=== PATIENT | female | born 1970 | race Caucasian/White ===

== ENCOUNTER 2020-02-01 14:04 | Emergency (ER) | payer OTHER ==
[~2020-02-01] VITALS: Ht 160 cm; Wt 85.0 kg
[2020-02-01 14:09] VITALS: Ht 160 cm; Wt 85.0 kg
[2020-02-01] MEDS ORDERED: LISINOPRIL20 MG PO (14:10)
[2020-02-01] MEDS ORDERED: PRINIVIL10 MG PO (14:11)
[2020-02-01] MEDS ORDERED: ZYLOPRIM100 MG PO (14:11)
[2020-02-01] MEDS ORDERED: ESTRACE2 MG PO (14:11)
[2020-02-01 14:59] LABS: BILIRUBIN NEGATIVE (NEGATIVE); GLUCOSE NEGATIVE (NEGATIVE); KETONE NEGATIVE (NEGATIVE); NITRITE NEGATIVE (NEGATIVE); UROBILINOGEN NORMAL (NORMAL)
[2020-02-01 15:54] LABS: BASOPHILS 0.7 % (0-2); EOSINOPHILS 2.4 % (0-7); HEMATOCRIT 39.7 % (36.0-48.0); HEMOGLOBIN 13.4 g/dL (12-16); IMMATURE GRANULOCYTES 0.1 % (0-5); LYMPHOCYTES 36.2 % (15-50); MCH 29.8 pg (26.0-34.0); MCHC 33.8 g/dL (31.0-37.0); MCV 88.2 fL (80.0-100.0); MEAN PLATELET VOLUME 9.1 fL (7.4-10.4); MONOCYTES 9.8 % (2-11); NEUTROPHILS 50.8 % (40-80); PLATELET COUNT 321 10x3/uL (130-400); RDW 12.7 % (11.5-14.5)
[2020-02-01 16:13] LABS: CALC OSMOLALITY 269 mosm/kg (275-300); CALCIUM 8.5 mg/dL (8.5-10.1); CHLORIDE - SERUM 101 mmol/L (98-107); CREATININE - SERUM 0.8 mg/dL (0.6-1.3); GLUCOSE 93 mg/dL (74-106); POTASSIUM - SERUM 3.7 mmol/L (3.5-5.1); SODIUM 136 mmol/L (136-145); UREA NITROGEN 6 mg/dL (7-18); eGFR NON AFRICAN AMERICAN 80 mL/min (90-120)
[2020-02-01 16:16] LABS: ALBUMIN 3.7 g/dL (3.4-5.0); ALKALINE PHOSPHATASE 38 U/L (30-120); ALT (SGPT) 31 U/L (10-68); AMYLASE - SERUM 50 U/L (25-115); BILIRUBIN - TOTAL 0.57 mg/dL (0.2-1.3); LIPASE 92 U/L (73-393); PROTEIN - SERUM 7.6 g/dL (6.4-8.2); TROPONIN-I < 0.017 ng/mL (0.000-0.060)
[2020-02-01] MEDS ORDERED: HYDROCODON-ACE1 EAC7 PO (19:09)
[2020-02-01 20:25] VITALS: BP 126/84
== END 2020-02-01 20:25 | disposition home or self-care (01) ==
LOC: D.ER 14:04
PROVIDERS: Emergency Medicine
DX: R10.12 Left upper quadrant pain (principal); I10 Essential (primary) hypertension

== ENCOUNTER 2020-08-31 10:33 | Inpatient (IN) | payer OTHER ==
[~2020-08-31] VITALS: Ht 160 cm; Wt 74.8 kg
[~2020-08-31 10:33] MED LIST: ESTRACE2 MG PO; HYDROCODON-ACE1 EAC7 PO; LISINOPRIL20 MG PO; PRINIVIL10 MG PO; ZYLOPRIM100 MG PO
--- NOTE | 2020-08-31 11:00 | NUR ---
RECEIVED PATIENT FROM HOME, PATIENT STATES SHE HAS BEEN HAVING ABD PAIN FOR ABOUT 8 MONTHS THAT JUST KEEPS GETTING WORSE. SHE STATES THAT SHE CANT EAT WITHOUT GETTING SICK, HAS BEEN HAVING BLOODY STOOL OVER THE LAST DAY AND HAS NOTICED MUCUS IN STOOL SINCE SATURDAY AND GOT CONCERNED. PATIENT IS AWAKE ALERT AND ORIENTED. PLAN OF CARE REVIEWED AND ASSESSEMENT HAS BEEN COMPLETED. PATIENT DENIES NEEDS, BUT IS IN PAIN. IV STARTED TO LEFT AC, NURSE TO START IV FLUIDS AND IV MEDS. CALL LIGHT IN REACH.
[2020-08-31] MEDS ORDERED: CARAFATE1 G PO (11:26)
[2020-08-31] MEDS ORDERED: OMEPRAZOLE40 MG PO (11:28)
[2020-08-31 11:32] VITALS: BP 135/76
[2020-08-31 11:51] LABS: BASOPHILS 0.4 % (0-2); EOSINOPHILS 2.2 % (0-7); HEMATOCRIT 38.1 % (36.0-48.0); HEMOGLOBIN 13.4 g/dL (12-16); IMMATURE GRANULOCYTES 0.4 % (0-5); LYMPHOCYTE ABS# 2.59 10x3/uL (1.18-3.74); LYMPHOCYTES 31.3 % (15-50); MCH 30.2 pg (26.0-34.0); MCHC 35.2 g/dL (31.0-37.0); MCV 85.8 fL (80.0-100.0); MEAN PLATELET VOLUME 9.7 fL (7.4-10.4); MONOCYTES 8.9 % (2-11); NEUTROPHILS 56.8 % (40-80); RBC 4.44 10x6/uL (4.00-5.40); RDW 12.4 % (11.5-14.5); WBC 8.3 10x3/uL (4.8-10.8)
[2020-08-31 11:53] LABS: PLATELET COUNT 227 10x3/uL (130-400)
[2020-08-31 12:08] LABS: ALBUMIN 3.9 g/dL (3.4-5.0); ALKALINE PHOSPHATASE 47 U/L (30-120); ALT (SGPT) 46 U/L (10-68); AMYLASE - SERUM 38 U/L (25-115); BILIRUBIN - TOTAL 0.63 mg/dL (0.2-1.3); CALC OSMOLALITY 271 mosm/kg (275-300); CALCIUM 9.1 mg/dL (8.5-10.1); CHLORIDE - SERUM 100 mmol/L (98-107); CREATININE - SERUM 0.6 mg/dL (0.6-1.3); GLUCOSE 101 mg/dL (74-106); LIPASE 105 U/L (73-393); MAGNESIUM - SERUM 1.7 mg/dL (1.8-2.4); PHOSPHOROUS 3.7 mg/dL (2.5-4.9); POTASSIUM - SERUM 3.3 mmol/L (3.5-5.1); PROTEIN - SERUM 7.3 g/dL (6.4-8.2); SODIUM 137 mmol/L (136-145); UREA NITROGEN 8 mg/dL (7-18); eGFR NON AFRICAN AMERICAN > 90 mL/min (90-120)
[2020-08-31 12:43] VITALS: BP 134/72
[2020-08-31 12:51] LABS: INR 1.02 (0.85-1.17); PROTIME 12.4 SECONDS (11.6-15.0)
--- NOTE | 2020-08-31 13:09 | NUR ---
NURSE GIVES PATIENT ZOFRAN FOR NAUSEA AT THIS TIME
[2020-08-31 13:25] LABS: NITRITE NEGATIVE (NEGATIVE)
[2020-08-31 13:26] LABS: BACTERIA FEW HPF (NONE SEEN); BILIRUBIN NEGATIVE (NEGATIVE); KETONE LARGE mg/dL (NEGATIVE); SQUAMOUS EPITHELIAL 0-5 HPF (0-4); UROBILINOGEN NORMAL mg/dL (< 2); WHITE CELLS - URINE RARE HPF (0-4)
[2020-08-31 15:31] LABS: UDS - AMPHET NEGATIVE QUAL (NEGATIVE); UDS - BARB NEGATIVE QUAL (NEGATIVE); UDS - BENZO NEGATIVE QUAL (NEGATIVE); UDS - COCAINE NEGATIVE QUAL (NEGATIVE); UDS - OPIATE POSITIVE QUAL (NEGATIVE); UDS - PCP NEGATIVE QUAL (NEGATIVE); UDS - THC POSITIVE QUAL (NEGATIVE)
[2020-08-31 15:36] LABS: BILIRUBIN NEGATIVE (NEGATIVE); KETONE MODERATE mg/dL (NEGATIVE); NITRITE NEGATIVE (NEGATIVE); UROBILINOGEN NORMAL mg/dL (< 2)
[2020-08-31 15:37] LABS: HCG URINE NEGATIVE (NEGATIVE)
--- NOTE | 2020-08-31 16:30 | NUR ---
PATIENT WILL BE HAVING A GASTRIC EMPTYING IN AM. NURSE ORDERED TO PLACE PATIENT NPO AFTER MIDNIGHT AND ---NO PAIN MEDS-- . NURSE PLACES ORDER. WILL RELAY MESSAGE
[2020-08-31 17:11] VITALS: BP 115/68
[2020-08-31 20:00] VITALS: BP 102/63
--- NOTE | 2020-08-31 22:54 | NUR ---
pt was asleep in bed, but easy to wake. no complaints of pain nor distress at this time. encourage to call if anything is needed
[2020-09-01 04:00] VITALS: BP 102/69
[2020-09-01 05:35] LABS: BASOPHILS 0.1 % (0-2); EOSINOPHILS 2.4 % (0-7); HEMATOCRIT 34.6 % (36.0-48.0); IMMATURE GRANULOCYTES 0.3 % (0-5); LYMPHOCYTE ABS# 1.49 10x3/uL (1.18-3.74); LYMPHOCYTES 20.2 % (15-50); MCH 29.8 pg (26.0-34.0); MCHC 34.7 g/dL (31.0-37.0); MCV 85.9 fL (80.0-100.0); MEAN PLATELET VOLUME 9.3 fL (7.4-10.4); MONOCYTES 13.3 % (2-11); NEUTROPHILS 63.7 % (40-80); RBC 4.03 10x6/uL (4.00-5.40); RDW 12.3 % (11.5-14.5); WBC 7.4 10x3/uL (4.8-10.8)
[2020-09-01 05:56] LABS: PLATELET COUNT 315 10x3/uL (130-400)
[2020-09-01 06:17] LABS: ALBUMIN 3.1 g/dL (3.4-5.0); ALKALINE PHOSPHATASE 51 U/L (30-120); BILIRUBIN - TOTAL 0.64 mg/dL (0.2-1.3); CALC OSMOLALITY 273 mosm/kg (275-300); CALCIUM 8.4 mg/dL (8.5-10.1); CARBON DIOXIDE 26.1 mmol/L (21.0-32.0); CHLORIDE - SERUM 103 mmol/L (98-107); CREATININE - SERUM 0.6 mg/dL (0.6-1.3); GLUCOSE 98 mg/dL (74-106); POTASSIUM - SERUM 3.2 mmol/L (3.5-5.1); PROTEIN - SERUM 6.4 g/dL (6.4-8.2); SODIUM 138 mmol/L (136-145); UREA NITROGEN 6 mg/dL (7-18); eGFR NON AFRICAN AMERICAN > 90 mL/min (90-120)
[2020-09-01 06:22] LABS: ALT (SGPT) 65 U/L (10-68)
[2020-09-01 08:37] VITALS: BP 138/88
--- NOTE | 2020-09-01 09:57 | NUR ---
PT LAYING IN BED, MEDS GIVEN, PT PLACED ON ISOLATION PRECAUTIONS FOR POSITIVE C-DIFF
[2020-09-01 14:08] VITALS: Ht 160 cm; Wt 74.8 kg
--- NOTE | 2020-09-01 15:15 | NUR ---
XIN CALLED BECAUSE PT STATES PAIN 04/02 WITH NO IV PAIN MEDS AND IS STILL NPO FOR MRI, ORDERS RECEIVED
[2020-09-01 18:27] VITALS: BP 111/73
[2020-09-01 20:00] VITALS: BP 109/60
[2020-09-02] VITALS: BP 109/60
--- NOTE | 2020-09-02 00:07 | NUR ---
PT WAS RESTING IN BED WITH VISTIOR AT BEDSIDE. PT COMPLAINED OF ABDOMEN PAIN. PT WAS GIVEN PAIN AND NAUSEA MEDICATION WHICH WAS EFFECTIVE. NO OTHER COMPLAINTS AT THAT TIME. BED IN LOW POSITION WITH CALL LIGHT IN REACH
[2020-09-02 04:00] VITALS: BP 100/56
[2020-09-02 06:28] LABS: BASOPHILS 0.5 % (0-2); EOSINOPHILS 2.8 % (0-7); HEMATOCRIT 34.4 % (36.0-48.0); HEMOGLOBIN 11.8 g/dL (12-16); IMMATURE GRANULOCYTES 0.2 % (0-5); LYMPHOCYTE ABS# 1.38 10x3/uL (1.18-3.74); LYMPHOCYTES 22.7 % (15-50); MCH 29.2 pg (26.0-34.0); MCHC 34.3 g/dL (31.0-37.0); MCV 85.1 fL (80.0-100.0); MEAN PLATELET VOLUME 8.9 fL (7.4-10.4); MONOCYTES 17.8 % (2-11); PLATELET COUNT 264 10x3/uL (130-400); RBC 4.04 10x6/uL (4.00-5.40); RDW 12.3 % (11.5-14.5); WBC 6.1 10x3/uL (4.8-10.8)
--- NOTE | 2020-09-02 07:20 | NUR ---
REC'D IN ROOM AWAKE AND ALERT. RESP EVEN AND UNLABORED WITH NO DISTRESS NOTED. CAN EXPRESS NEEDS AND WANTS. NO C/O NOTED OR VOICED AT THIS TIME. ASSESSMENT COMPLETED. C/L IN REACH AT BEDSIDE.
[2020-09-02 07:23] LABS: ALBUMIN 2.7 g/dL (3.4-5.0); ALKALINE PHOSPHATASE 45 U/L (30-120); BILIRUBIN - TOTAL 0.49 mg/dL (0.2-1.3); CALCIUM 8.2 mg/dL (8.5-10.1); CARBON DIOXIDE 26.6 mmol/L (21.0-32.0); CHLORIDE - SERUM 101 mmol/L (98-107); CREATININE - SERUM 0.6 mg/dL (0.6-1.3); GLUCOSE 104 mg/dL (74-106); POTASSIUM - SERUM 3.1 mmol/L (3.5-5.1); PROTEIN - SERUM 6.1 g/dL (6.4-8.2); SODIUM 136 mmol/L (136-145); eGFR NON AFRICAN AMERICAN > 90 mL/min (90-120)
[2020-09-02 07:27] LABS: ALT (SGPT) 40 U/L (10-68); CALC OSMOLALITY 267 mosm/kg (275-300); UREA NITROGEN 2 mg/dL (7-18)
[2020-09-02 08:37] VITALS: BP 108/80
--- NOTE | 2020-09-02 10:43 | NUR ---
I have reviewed this patient and I concur with the Shift Assessment completed by the Licensed Practical Nurse today this shift.
[2020-09-02 12:19] VITALS: BP 100/55
[2020-09-02 16:45] VITALS: BP 95/61
--- NOTE | 2020-09-02 17:24 | NUR ---
MEDICATED WITH NORCO AT THIS TIME FOR C/O ABD PAIN AND ZOFRAN FOR NAUSEA. C/L IN REACH AT BEDSIDE.
[2020-09-03 00:38] VITALS: BP 100/84
--- NOTE | 2020-09-03 00:52 | NUR ---
pt resting in bed. pt had no complaints of pain nor discomfort at the time. tolerating food/drink well at this time. bed in lowest position with call light in reach
[2020-09-03 04:57] VITALS: BP 144/69
[2020-09-03 07:06] LABS: BASOPHILS 0.4 % (0-2); EOSINOPHILS 5.2 % (0-7); HEMATOCRIT 32.9 % (36.0-48.0); HEMOGLOBIN 11.6 g/dL (12-16); IMMATURE GRANULOCYTES 0.2 % (0-5); LYMPHOCYTE ABS# 1.42 10x3/uL (1.18-3.74); LYMPHOCYTES 30.5 % (15-50); MCH 29.8 pg (26.0-34.0); MCHC 35.3 g/dL (31.0-37.0); MCV 84.6 fL (80.0-100.0); MONOCYTES 15.9 % (2-11); NEUTROPHIL ABS# 2.23 10x3/uL (1.56-6.13); NEUTROPHILS 47.8 % (40-80); PLATELET COUNT 253 10x3/uL (130-400); RBC 3.89 10x6/uL (4.00-5.40); RDW 12.4 % (11.5-14.5); WBC 4.7 10x3/uL (4.8-10.8)
[2020-09-03 07:26] LABS: ALBUMIN 2.7 g/dL (3.4-5.0); ALKALINE PHOSPHATASE 40 U/L (30-120); ALT (SGPT) 32 U/L (10-68); BILIRUBIN - TOTAL 0.21 mg/dL (0.2-1.3); CALCIUM 8.4 mg/dL (8.5-10.1); CARBON DIOXIDE 28.7 mmol/L (21.0-32.0); CHLORIDE - SERUM 104 mmol/L (98-107); CREATININE - SERUM 0.7 mg/dL (0.6-1.3); GLUCOSE 108 mg/dL (74-106); POTASSIUM - SERUM 3.4 mmol/L (3.5-5.1); PROTEIN - SERUM 5.5 g/dL (6.4-8.2); SODIUM 138 mmol/L (136-145); eGFR NON AFRICAN AMERICAN > 90 mL/min (90-120)
[2020-09-03 07:27] LABS: CALC OSMOLALITY 273 mosm/kg (275-300); UREA NITROGEN 3 mg/dL (7-18)
[2020-09-03 08:12] VITALS: BP 116/70
--- NOTE | 2020-09-03 08:47 | NUR ---
AAOX4 UPON ENTERING. ADMINISTERED MORNING MEDICATION, TOLERATED WELL. BREAKFAST AT BEDSIDE. DENIES ANY NEEDS AT THIS TIME. BED IN LOWEST POSITION, BED RAILS X2, CALL LIGHT WITHIN REACH. WILL CONTINUE POC.
[2020-09-03] MEDS ORDERED: LEVAQUIN750 MG PO (10:48)
[2020-09-03] MEDS ORDERED: FLAGYL500 MG PO (10:49)
--- NOTE | 2020-09-03 11:40 | NUR ---
I have reviewed this patient and I concur with the Shift Assessment completed by the Licensed Practical Nurse today this shift.
--- NOTE | 2020-09-03 12:18 | NUR ---
SIGNED ALL NECESSARY PAPERWORK AT THIS TIME. IV REMOVED FROM LEFT HAND, CATHETER TIP INTACT, COVERED WITH GAUZE AND TAPE. TOLERATED WELL. GETTING DRESSED WILL ESCORT OUT TO ER. FAMILY WAITING.
--- NOTE | 2020-09-03 18:12 | MORECARE ---
CASE MANAGEMENT DISCHARGE SUMMARY PATIENT: TALON MEJIA UNIT: [id number] ADM DATE: 09/01/20 AGE: 50 : 68 SEX: F ROOM/BED: D.[facility]8 AUTHOR: HELGA WILLSON PHYSICIAN: REFERRING PHYSICIAN: SABI FERREIRA DO DATE OF SERVICE: 09/03/20 Discharge Plan Patient Name: [facility]ALON MEJIA [facility] [facility] 1970 Planned Disposition: Home Anticipated Discharge Date: 09/03/20 Discharge Date: 09/03/2020 Expected LOS: 2 Initial Reviewer: [email or web address] Initial Review Date: 08/31/2020 Generated: 09/03/20 7:11 pm Patient Name: TALON MEJIA Page 12506 at 1812 All edits/amendments must be made on the electronic document DICTATION DATE: 09/03/201811 BRUISE TRIMMER: RAYMOND 09/03/201811 RPT#: [id number] DC DATE:09/03/20 STATUS: DIS IN [facility] [address] [place] [address] END OF REPORT
--- NOTE | 2020-09-03 18:19 | MORECARE ---
CASE MANAGEMENT DISCHARGE SUMMARY PATIENT: TALON MEJIA UNIT: [id number] ADM DATE: 09/01/20 AGE: 50 : 68 SEX: F ROOM/BED: D.2238 AUTHOR: HELGA WILLSON PHYSICIAN: REFERRING PHYSICIAN: SABI FERREIRA DO DATE OF SERVICE: 09/03/20 Discharge Plan Patient Name: TALON MEJIA Facility: [facility]:[place] : 1970 Planned Disposition: Home Anticipated Discharge Date: 09/03/20 Discharge Date: 09/03/2020 Expected LOS: 2 Initial Reviewer: MARILYN Initial Review Date: 08/31/2020 Generated: 09/03/20 7:18 pm Comments DCP- Discharge Planning Updated by [email or web address]: Glenn Faria on 09/03/20 5:[address] CM met with patient to complete DC plan and to evaluate needs. Patient lives at home with family. At discharge, the patient plans to return home and feels this is a safe discharge. CM discussed availability of home health, rehab services, and medical equipment. Patient declined HHS, SNF, IPR, and DME. Patient voiced no other needs at this time and is satisfied with DC plan. CM will continue to follow and will assist as needed with dc plans/needs. DCPIA - Discharge Planning Initial Assessment Updated by [email or web address]: Glenn Faria on 09/03/20 6:14 pm * Is the patient Alert and Oriented? Yes * How many steps to enter\exit or inside your home? 0/0 * PCP JHON * Pharmacy [facility] on [address] * Preadmission Environment Home with Family * ADLs Independent * Equipment None * Other Equipment n/a * List name and contact numbers for known caregivers / representatives who currently or will assist patient after discharge: JAMES BULLOCK ([phone]) dtr * Verbal permission to speak to the caregivers and representatives has been obtained from the patient. Yes * Community resources currently utilized None * Please name any agencies selected above. n/a * Additional services required to return to the preadmission environment? No * Can the patient safely return to the preadmission environment? Yes * Has this patient been hospitalized within the prior 30 days at any hospital? No Last DP export: 3/13/21 5:12 p Patient Name: TALON MEJIA Page 24255 at 1819 All edits/amendments must be made on the electronic document DICTATION DATE: 09/03/201818 ELECTRONIC TEST TECHNICIAN: RAYMOND 09/03/201818 RPT#: [id number] DC DATE:09/03/20 STATUS: DIS IN [facility] [address] [place] [address] END OF REPORT
--- NOTE | 2020-09-05 08:25 | MORECARE ---
CASE MANAGEMENT DISCHARGE SUMMARY PATIENT: TALON MEJIA UNIT: [id number] ADM DATE: 09/01/20 AGE: 50 : 68 SEX: F ROOM/BED: D.2238 AUTHOR: HELGA WILLSON PHYSICIAN: REFERRING PHYSICIAN: SABI FERREIRA DO DATE OF SERVICE: 09/05/20 Discharge Plan Patient Name: TALON MEJIA Facility: [facility]:[place] : 1970 Planned Disposition: Home Anticipated Discharge Date: 09/03/20 Discharge Date: 09/03/2020 Expected LOS: 2 Initial Reviewer: MARILYN Initial Review Date: 08/31/2020 Generated: 09/05/20 9:24 am Comments DCP- Discharge Planning Updated by [email or web address]: Glenn Faria on 09/03/20 4:[address] CM met with patient to complete DC plan and to evaluate needs. Patient lives at home with family. At discharge, the patient plans to return home and feels this is a safe discharge. CM discussed availability of home health, rehab services, and medical equipment. Patient declined HHS, SNF, IPR, and DME. Patient voiced no other needs at this time and is satisfied with DC plan. CM will continue to follow and will assist as needed with dc plans/needs. DCPIA - Discharge Planning Initial Assessment Updated by [email or web address]: Glenn Faria on 09/03/20 6:14 pm * Is the patient Alert and Oriented? Yes * How many steps to enter\exit or inside your home? 0/0 * PCP JHON * Pharmacy [facility] on [address] * Preadmission Environment Home with Family * ADLs Independent * Equipment None * Other Equipment n/a * List name and contact numbers for known caregivers / representatives who currently or will assist patient after discharge: JAMES BULLOCK ([phone]) dtr * Verbal permission to speak to the caregivers and representatives has been obtained from the patient. Yes * Community resources currently utilized None * Please name any agencies selected above. n/a * Additional services required to return to the preadmission environment? No * Can the patient safely return to the preadmission environment? Yes * Has this patient been hospitalized within the prior 30 days at any hospital? No Last DP export: 3/13/21 4:19 p Patient Name: TALON MEJIA Page 46956 at 0825 All edits/amendments must be made on the electronic document DICTATION DATE: 09/05/20823 LICENSED CLUB MANAGER: RAYMOND 09/05/20823 RPT#: [id number] DC DATE:09/03/20 STATUS: DIS IN [facility] [address] [place] [address] END OF REPORT
== END 2020-09-03 12:21 | disposition home or self-care (01) | DRG 392 ==
LOC: OBSVTIME 10:33 → D.MS 10:33
PROVIDERS: Family Medicine Adult Medicine; ADMIT Family Medicine; ATTEND Family Medicine
DX: R10.13 Epigastric pain (principal); A04.72 Enterocolitis due to Clostridium difficile, not specified as recurrent; I10 Essential (primary) hypertension; F12.90 Cannabis use, unspecified, uncomplicated; B96.89 Other specified bacterial agents as the cause of diseases classified elsewhere; R11.0 Nausea